=== PATIENT | female | born 1950 | race Asian ===

== ENCOUNTER 2021-11-24 09:18 | Outpatient (CLI) | payer BC | END 2021-11-24 09:19 | disposition home or self-care (01) | LOC: CSHMAMMO 09:18 | PROVIDERS: ATTEND Family Medicine Sports Medicine | DX: M85.89 Other specified disorders of bone density and structure, multiple sites (principal) | CPT/HCPCS: 77080 ==

== ENCOUNTER 2024-08-22 13:04 | Outpatient (CLI) | payer OTHER | END 2024-08-22 13:05 | disposition home or self-care (01) | LOC: CSHMAMMO 13:04 | PROVIDERS: ATTEND Obstetrics & Gynecology | DX: Z12.31 Encounter for screening mammogram for malignant neoplasm of breast (principal) | CPT/HCPCS: 77063; 77067 ==